=== PATIENT | male | born 1945 | race Caucasian/White ===

== ENCOUNTER 2022-11-14 06:29 | Day surgery (SDC) | payer OTHER ==
[2022-11-11 13:30] LABS: Protime INR 0.98
[2022-11-11 13:34] LABS: Absolute Lymphocytes (CBC) 1.4 K/uL (0.7-4.9); Hematocrit 41.4 % (39.6-49.0); Lymphocytes % 21.8 % (15.3-44.8); MCV 93.4 fL (80-100); MPV 7.8 fL (7.6-11.3); RBC Red Blood Cell Count 4.44 M/uL (4.33-5.43)
--- NOTE | 2022-11-11 13:52 | RAD REPORT ---
EXAM DESCRIPTION: [place] Single View11/11/2022 1:19 pm CLINICAL HISTORY: Preop for genitourinary surgery COMPARISON: 2013 FINDINGS: The lungs appear clear of acute infiltrate. The heart is normal size IMPRESSION: No acute abnormalities displayed
[2022-11-11 15:03] LABS: Specific Gravity 1.024 (1.005-1.030); Urine Bacteria <20 /HPF (<20); Urine Bilirubin NEGATIVE (Negative); Urine Blood Negative (Negative); Urine Clarity Clear (Clear); Urine Color Light-Yellow (Yellow); Urine Glucose NEGATIVE (Negative); Urine Mucus Slight /HPF (None Seen); Urine Protein TRACE (Negative); Urine RBC <5 /HPF (None Seen); Urine Urobilinogen Normal (Normal); Urine pH 5.5 (5.0-7.0)
--- NOTE | 2022-11-13 11:19 | EKG ---
Test Date: 2022-11-11 Test Time: 13:11:22 Extractor Machine Operator: CARLOS MEASUREMENT RESULTS: Intervals: Rate: 55 MN: 196 QRSD: 90 QT: 448 QTc: 428 [place]: P: 50 MN: 196 QRS: 57 T: 37 INTERPRETIVE STATEMENTS: Sinus bradycardia Otherwise normal ECG No previous ECG available for comparison Electronically Signed On 11-13-22 11:17:29 CDT by Hermelindo Zaidi
[2022-11-14] MEDS ORDERED: Ringers Lactate 1,000 ML IV ONE (07:06)
[2022-11-14] MEDS ORDERED: FENTANYL CITR 100 MCG/2 ML ONE (07:10)
[2022-11-14] MEDS ORDERED: LIDOCAINE 1% MPF 5 ML VIAL ONE (07:10)
[2022-11-14] MEDS ORDERED: propofoL 200 MG/20 ML VIAL IV ONE (07:10)
[2022-11-14] MEDS ORDERED: MIDAZOLAM HCL 2 MG/2 ML INJ ONE (07:10)
[2022-11-14] MEDS ORDERED: ONDANSETRON 4 MG/2 ML VIAL ONE (07:11)
[2022-11-14] MEDS ORDERED: ROCURONIUM 50 MG/5 ML VIAL IV ONE (07:11)
[2022-11-14] MEDS: CEFAZOLIN SODIUM 2 GM/VIAL ONE ×3 (07:47→07:52)
[2022-11-14] MEDS ORDERED: KETOROLAC 30 MG/ML INJ ONE (08:25)
[2022-11-14 08:36] VITALS: O2SAT 99
[2022-11-14] MEDS ORDERED: PHENAZOPYRIDINE 100MG TAB PO ONE ×2 (08:47→10:11)
[2022-11-14] MEDS ORDERED: HYDROCODONE/APAP 5/325 MG TAB PO PRN (08:47)
--- NOTE | 2022-11-14 09:05 | RAD REPORT ---
EXAM DESCRIPTION: RAD - Urethrocystogrphy Retrograde - 11/14/2022 8:39 am CLINICAL HISTORY: RT STENT PLACEMEMENT COMPARISON: None available. FINDINGS: Fluoroscopic images during a right ureteral stent placement procedure. No radiologist was available for the procedure, nor will any image interpretation he provided. Please refer to the proce dural report for additional details. Fluoroscopy time: 2:44 Minutes. IMPRESSION: Documentation of fluoroscopy utilization as above.
[2022-11-14 10:26] VITALS: BP 173/49
[2022-11-14 10:27] VITALS: TEMP 97.2
--- NOTE | 2022-11-14 12:46 | OP ---
Surgeon: PAULO FOSS Preoperative Diagnoses: 1.Right ureterolithiasis. 2.Right hydronephrosis. Postoperative Diagnoses: 1.Impacted right obstructive ureterolithiasis. 2.Right hydronephrosis. 3.Bulbar urethral stricture disease. Principal Procedures: 1.Cystoscopy. 2.Sequential urethral dilation over a wire. 3.Right retrograde pyelography. 4.Attempted but failed right upper tract access for ureteral stent placement. Indication For Procedure: Mr. Gunderson is a 77-year-old gentleman who presented to the [facility] recently with right flank pain and was found to have an obstructing 8 mm right ureteral calculu s. His pain had been present since April, and he had only recently been referred for evaluation. I counseled the patient extensively on the risk of impaction of the stone and the need for timely ames rgical intervention to relieve the obstruction given the potential for permanent kidney function jessica machado. As a result, he was scheduled today just days after the diagnosis was formed. Procedure Note In Detail: The patient was consented in the preoperative holding area before being tr ansferred to the operative suite, where general anesthesia was induced. He was given Ancef 2 g IV an timicrobial prophylaxis, and pneumo boots were provided for DVT prophylaxis. He was placed in the li thotomy position, padded and secured to the table appropriately. His genitalia were prepped with Hib iclens and draped in standard fashion. The case was begun using a 22-Zambian rigid cystoscope to rafaela erse the urethra. However, within the bulbar urethra, there was a superficial mucosal flap bulbar ur ethral stricture that prohibited passage of the cystoscope. As a result, I placed a Bentson wire thr ough the stricture which was approximately 15 Zambian in diameter, and had difficulty actually navigat ing the Bentson wire through the prostatic urethra. As a result, I used a 5-Zambian ureteral access c atheter and a Sensor wire and was subsequently able to navigate the wire through the stricture and th e prostatic urethra into his bladder. Over the Sensor wire, I then replaced the 5-Zambian ureteral ac cess catheter into his bladder with return of clear yellow urine, and then I switched the Sensor wire for a Bentson wire and then utilized sequential dilators starting at 18 Zambian to dilate his urethra and the stricture. I was able to successfully pass the 18-Zambian dilator, but the 20-Zambian dilator would not pass. I had to switch the Sensor wire then to a superstiff wire, at which point, I was ab le to then pass the 20-Zambian dilator and a 22-Zambian dilator, ultimately dilating to 24 Zambian. I t hen left the superstiff wire in place and backloaded the cystoscope over it and was able to navigate the scope past the point of stricture disease and through the prostatic urethra successfully into his bladder. At this point, his urine was bloody, and so I decompressed his bladder of fluid and urine and blood, and then irrigated it a bit in order just to be able to visualize the right ureteral orifi ce. A complete cystoscopic evaluation of his bladder was not performed because of the significant gr oss hematuria present. I was able to identify the right ureteral orifice amidst the blood, and utili zed a 5-Zambian ureteral access catheter along with a Sensor wire to gain access into the right ureter al orifice. With the tip of the 5-Zambian ureteral access catheter in the orifice, I then performed a retrograde pyelogram. Right retrograde pyelography: Using a 70:30 mixture of Omnipaque and saline, contrast was injected v ia the 5-Zambian ureteral access catheter and did propagate up the distal component of the ureter unti l it reached in a delayed fashion, a visible radiopaque calculus obstructing in the mid proximal uret er. The contrast abutted the base of the density, but initially would not pass beyond it. As a resu lt, I utilized a second 10 cc bolus of contrast and was able to get a wisp of contrast along the medi al border of the stone and into the proximal ureter. There was still delayed transit of the contrast entry into the renal pelvis, which was initially not visualized. However, with repeat spot fluorosc opic imagery, the contrast did enter the lower pole calyx only. As a result, I attempted to pass a S ensor wire via the 5-Zambian ureteral access catheter into his collecting system. Using the Sensor wire, I passed via the 5-Zambian ureteral access catheter, the wire up the distal int o the mid ureter where it encountered the base of the stone and would simply coil. Multiple attempts and manipulation were performed with the Sensor wire even bringing the 5-Zambian ureteral access cath eter up to the base of the stone and attempting to pass the wire around the stone were performed with out success. I even took a dilute bolus of contrast, 50:50 mixture, and with the 5-Zambian ureteral a ccess catheter just near the tip of the stone, and pressurized bolused the contrast beneath the stone in order to try to dislodge it a bit and then attempted to pass the Sensor wire around it, and I rem ained unsuccessful. So, I then switched to a hydrophilic Glidewire which I also attempted to pass ar ound the stone and after multiple attempts were completely unsuccessful at gaining access around the calculus. The wire would simply coil beneath it. I even switched to an angled Sensor wire in order to try to gain access beyond the stone with multiple efforts at manipulation of the angled tip, and y et remained unsuccessful at gaining access beyond the stone into the upper tract. So, at this point, after multiple attempts and failures, I aborted further efforts to gain access into his right collec ting system, and instead placed the superstiff wire back into his bladder after removing the 5-Zambian ureteral access catheter from his right ureter, and then I passed a 20-Zambian Councill tip catheter over the wire into his bladder after removing the cystoscope, leaving the wire in place. Once the Co uncill tip was successfully placed, I removed the superstiff wire and placed 10 cc of sterile water i n the balloon. The catheter was then connected to bag drainage, and the patient taken out of the lit hotomy position. He was then awakened from general anesthesia, transferred to a stretcher, and then transferred to the recovery room in good condition. Complications: None. Discharge Disposition: The patient will require prompt right percutaneous nephrostomy tube placement and subsequent management of his stone. Given the radiopaque nature of the stone, he may be a reaso nable candidate for ESWL and placement of a stent following successful treatment of the stone as oppo sed to an antegrade approach to the ureteroscopy and management of the stone. WR/MODL Voice ID: [id number] Report ID: [id number]
== END 2022-11-14 10:20 | disposition home or self-care (01) ==
LOC: OR 06:29
PROVIDERS: ATTEND Urology
PROC: 0T768DZ Dilation of Right Ureter with Intraluminal Device, Via Natural or Artificial Opening Endoscopic (ICD-10-PCS; principal; 2022-11-14 07:30)
DX: N13.2 Hydronephrosis with renal and ureteral calculous obstruction (principal); N35.912 Unspecified bulbous urethral stricture, male
CPT/HCPCS: 93005; 87088; 85025; 81001; 87086; 36415; 85610; 87077; 87186; 71045; 74450; 51610; 52332; J2704; J2001; J2250; J3010; J2405; J7120

== ENCOUNTER 2023-01-03 06:27 | Day surgery (SDC) | payer OTHER ==
[2022-12-19 15:51] LABS: Absolute Lymphocytes (CBC) 1.3 K/uL (0.7-4.9); Hematocrit 41.5 % (39.6-49.0); Lymphocytes % 23.2 % (15.3-44.8); MCV 92.5 fL (80-100); Platelets 247 thou/uL (152-406); RBC Red Blood Cell Count 4.49 M/uL (4.33-5.43)
[2022-12-19 16:04] LABS: Protime INR 0.97
[2022-12-19 16:09] LABS: Potassium 4.8 mEq/L (3.5-5.1)
[2023-01-03] MEDS ORDERED: Ringers Lactate 1,000 ML IV ONE (06:51)
[2023-01-03] MEDS ORDERED: propofoL 200 MG/20 ML VIAL IV ONE (07:10)
[2023-01-03] MEDS ORDERED: MIDAZOLAM HCL 2 MG/2 ML INJ ONE (07:11)
[2023-01-03] MEDS ORDERED: FENTANYL CITR 100 MCG/2 ML ONE (07:11)
[2023-01-03] MEDS ORDERED: ONDANSETRON 4 MG/2 ML VIAL ONE (07:13)
[2023-01-03] MEDS ORDERED: LIDOCAINE 1% MPF 5 ML VIAL ONE (07:19)
[2023-01-03] MEDS: CEFTRIAXONE 1000 MG/VIAL ONE ×3 (07:30→07:43)
[2023-01-03] MEDS ORDERED: ROCURONIUM 50 MG/5 ML VIAL IV ONE (07:58)
[2023-01-03] MEDS ORDERED: GLYCOPYRROLATE 0.2 MG/ML SYR ONE (08:28)
[2023-01-03] MEDS ORDERED: NEOSTIGMINE 1 MG/ML -10 ML VIAL ONE (08:29)
--- NOTE | 2023-01-03 08:33 | RAD REPORT ---
EXAM DESCRIPTION: RAD - Urethrocystogrphy Retrograde - 01/03/2023 8:27 am CLINICAL HISTORY: RT STENT EXCHANGE COMPARISON: Urethrocystogrphy Retrograde dated 11/14/2022; Abdomen Pelvis Wo Contrast dated FINDINGS/IMPRESSION: Fluoroscopic images submitted for a right ureteral stent placement and right ne phrostomy tube removal. Fluoro time: 1 minutes 13 seconds
[2023-01-03] MEDS ORDERED: NALOXONE 0.4 MG/ML VIAL ONE (08:46)
[2023-01-03] MEDS ORDERED: HYDROCODONE/APAP 5/325 MG TAB PO PRN (08:52)
[2023-01-03] MEDS ORDERED: PHENAZOPYRIDINE 100MG TAB PO ONE ×2 (08:52→09:43)
[2023-01-03 09:28] VITALS: BP 176/65; TEMP 97.5; O2SAT 98
[2023-01-03] MEDS ORDERED: HYDROCODONE/APAP 5/325 MG TAB ONE (09:44)
--- NOTE | 2023-01-03 16:27 | OP ---
Surgeon: PAULO FOSS Preoperative Diagnoses: 1.Impacted mid proximal ureterolithiasis on the right. 2.Status post right percutaneous nephrostomy tube. Postoperative Diagnoses: 1.Impacted mid proximal ureterolithiasis on the right. 2.Status post right percutaneous nephrostomy tube. 3.Mid proximal right ureteral stricture disease. Principal Procedures: 1.Cystoscopy with right retrograde pyelography. 2.Right ureteroscopy with laser lithotripsy. 3.Right ureteral stent placement. 4.Removal of right percutaneous nephrostomy tube. Indication For Procedure: Mr. Gunderson is a 77-year-old gentleman who presented to [facility] with pain that had been present for many months, since April of 2022, and he was subse quently found to have an obstructing 8 mm right mid ureteral calculus. He underwent attempted cystos copy and right ureteral stent placement, but no fluid would pass beyond the stone due to its densely impacted nature, and so I was unable to place the stent. As a result, a percutaneous nephrostomy tub e was placed, and he presents today for definitive management. Of note, he was started on Levaquin p reoperatively for a prior nephrostomy tube urine culture that was taken. Procedure In Detail: The patient was consented in the preoperative holding area before being transfe rred to the operative suite where general anesthesia was induced. He was given ceftriaxone 1 g IV an timicrobial prophylaxis, and pneumo boots were provided for DVT prophylaxis. He was placed in the li thotomy position, padded and secured to the table appropriately. His genitalia were prepped with Hib iclens and he was draped in standard fashion. The case was begun using a 22-Burkinan rigid cystoscope to traverse the urethra and into the bladder with ease. The bladder was decompressed of fluid and ur ine, and the right ureteral orifice was identified. It was cannulated using the tip of the Sensor wi re and a 5-Burkinan ureteral access catheter. A retrograde pyelogram was then performed. Right retrograde pyelography: Using a 70:30 mixture of Omnipaque and saline, contrast was injected v ia the lumen of the 5-Burkinan ureteral access catheter and did propagate up the distal into the mid ur eter where a radiodense calculus was identified. Contrast did propagate beyond the obstructing stone into the renal pelvis where the nephrostomy tube coil was localized. As a result, I then passed a S ensor wire via the 5-Burkinan ureteral access catheter and attempted to navigate it into the collecting system. Unfortunately, the wire would not navigate beyond the obstructing calculus, only coiling be neath it despite multiple attempts. As a result, I left the wire coiled beneath the stone and passed a dual-lumen catheter into the distal ureter and again injected contrast confirming the appropriate localization of the wire and the dual-lumen catheter. I then utilized a 0.35 mm Glidewire to pass vi a the second lumen of the dual-lumen catheter to attempt to navigate it beyond the stone and into the collecting system, but this also would not pass. As a result, I removed the dual-lumen catheter delma ving the Sensor wire in place, coiled beneath the stone, and I performed direct vision semi-rigid ure teroscopy. I traversed the urethra and into his bladder following alongside the wire into the ureter al orifice and up the distal ends of the mid ureter and eventually into the proximal ureter where the stone was identified. Using a 272 nm laser fiber and a power setting of 0.8 joules and 10 hertz ini tially, I began fragmenting the stone. I continued the fragmentation increasing the rate to 15 hertz in order to fragment the stone into dust, smaller than 1 mm particles. Once the stone had been rele ased out of its impacted localization within the mid proximal ureter, many of the smaller fragments d id go into the renal pelvis associated with the pressurized saline irrigation. However, because all of those fragments were smaller than 1 to 2 mm maximum, and because of evidence of some stricture trisha rowing in the mid proximal ureter, I did not elect to brenda those fragments into the renal pelvis for further lithotripsy. As a result, I then navigated the Sensor wire under direct vision via the stri cture narrowing and into the collecting system as observed fluoroscopically. I removed the semi-rigi d ureteroscope and then backloaded the cystoscope over the Sensor wire. Under direct vision, I then passed a 6-Burkinan x 26 cm double-J ureteral stent over the Sensor wire co iling it in the renal pelvis as observed fluoroscopically. An additional coil was cystoscopically se en within the bladder. I then decompressed his bladder of fluid and urine, and took the patient out of the lithotomy position. He was then awakened from general anesthesia, transferred to a stretcher, and then transferred to the recovery room in good condition. Complications: None. Discharge Disposition: Given the stricture disease noted within the mid proximal ureter, I did couns el the patient beforehand that I would likely recommend leaving the stent for at least 4 to 6 weeks t o prevent progression of the stricture disease to obstruction. As a result, I will recommend removal of the stent in 4 to 6 weeks' time and subsequently we will arrange a renal ultrasound in about 3 mo nths to ensure absence of hydronephrosis. ALLISON/AIMEL Voice ID: [id number] Report ID: [id number]
== END 2023-01-03 10:14 | disposition home or self-care (01) ==
LOC: OR 06:27
PROVIDERS: ATTEND Urology
PROC: 0T768DZ Dilation of Right Ureter with Intraluminal Device, Via Natural or Artificial Opening Endoscopic (ICD-10-PCS; 2023-01-03)
PROC: 0TF68ZZ Fragmentation in Right Ureter, Via Natural or Artificial Opening Endoscopic (ICD-10-PCS; principal; 2023-01-03 07:30)
DX: N13.2 Hydronephrosis with renal and ureteral calculous obstruction (principal); N13.5 Crossing vessel and stricture of ureter without hydronephrosis; Z93.6 Other artificial openings of urinary tract status
CPT/HCPCS: 87088; 85025; 87086; 80048; 36415; 85610; 74450; 51610; 52356; J2704; J2710; J2310; J2001; J2250; J3010; J2405; J7120; J0696

== ENCOUNTER → 2024-06-03 | Day surgery (SDC) | payer OTHER ==
[~2024-06-03] MED LIST: FENTANYL CITR 100 MCG/2 ML ONE; LIDOCAINE 1% MPF 5 ML VIAL ONE; MIDAZOLAM HCL 2 MG/2 ML INJ ONE; propofoL 200 MG/20 ML VIAL IV ONE
[2024-06-03 09:17] LABS: Specific Gravity 1.024 (1.005-1.030); Sqamous Epithelial None Seen /HPF (None Seen); Transitional Epithelial <5 /HPF (None Seen); Urine Bacteria None Seen /HPF (<20); Urine Bilirubin NEGATIVE (Negative); Urine Blood Negative (Negative); Urine Clarity Turbid (Clear); Urine Color Yellow (Yellow); Urine Culture Reflex Order NOT NEEDED; Urine Glucose NEGATIVE (Negative); Urine Ketones NEGATIVE (Negative); Urine Microscopic Reflex YN ORDER UMIC; Urine Mucus Slight /HPF (None Seen); Urine Nitrite NEGATIVE (Negative); Urine Protein NEGATIVE (Negative); Urine RBC <5 /HPF (None Seen); Urine Urobilinogen Normal (Normal); Urine WBC <5 /HPF (<5); Urine pH 6.5 (5.0-7.0)
[2024-06-03] MEDS: Ringers Lactate 1,000 ML IV ONE (09:35)
[2024-06-03 09:47] LABS: Absolute Eosinophils 0.1 K/uL (0-0.5); Absolute Lymphocytes (CBC) 0.9 K/uL (0.7-4.9); Absolute Monocytes 0.5 K/uL (0.1-1.3); Absolute Neutrophil 3.1 K/uL (1.8-8.0); Basophils % 0.7 % (0-1.3); Eosinophils % 1.5 % (0-4.4); Hematocrit 40.2 % (39.6-49.0); Hemoglobin 13.4 g/dL (13.6-17.9); Lymphocytes % 19.2 % (15.3-44.8); MCH 30.9 pg (27.0-35.0); MCHC 33.3 g/dL (32.0-36.0); MCV 92.9 fL (80-100); MPV 7.9 fL (7.6-11.3); Monocytes % 10.5 % (3.3-12.3); Neutrophils % 68.1 % (41.7-73.7); Nucleated Red Blood Cells % 0.1 % (0-0); Platelets 208 thou/uL (152-406); RBC Red Blood Cell Count 4.33 M/uL (4.33-5.43); Red Cell Distribution Width 13.7 % (12.1-15.2)
[2024-06-03 09:58] LABS: Anion Gap 6.3 mEq/L (5.0-15.0); Potassium 4.3 mEq/L (3.5-5.1)
[2024-06-03] MEDS: CIPROFLOXACIN HCL 500 MG TAB ONE (11:00)
[2024-06-03 11:07] LABS: PT Prothrombin Time 11.9 SECONDS (9.4-12.5); PTT, Activated Partial Thromb 32.8 SECONDS (24.3-36.9); Protime INR 1.13
--- NOTE | 2024-06-03 13:58 | P.OP ---
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 He underwent evaluation revealing an over 75 g prostate and was counseled on the opportunity to manage the obstruction via UroLift. 05/14/2024 PSA 1.3. Procedure note: The patient was consented in the preoperative holding area before being transferred to the operative suite where general anesthesia was induced. He was given ciprofloxacin 500 mg oral antimicrobial prophylaxis at least 1 to 2 hours prior to the procedure. Pneumoboots were provided for DVT prophylaxis. He was placed in the lithotomy position, padded and secured to the table appropriately. His genitalia was prepped with Hibiclens and he was draped in standard fashion. The case has begun using the 20 Uzbek UroLift sheath and a visual obturator along with normal saline irrigation to traverse the urethra and into the bladder with relative ease. Significant interdigitating lateral lobar hypertrophy was noted but no significant elevated median bar or intravesical projection of a median lobe. I surveyed the bladder in its entirety, which was moderate to severely trabeculated throughout, and posteriorly in the bladder, there was an approximately 6 x 3 mm calculus dependent. I utilized the sheath of the scope and navigated the calculus until it was situated lengthwise within the opening of the sheath, and I was able to deliver the calculus out using the 20 Uzbek UroLift sheath. I switched the visual obturator for the first UroLift delivery device and an implant. I targeted the first implant at the patient's bladder neck on the left at around the 3 o'clock position approximately 1.5 to 2 cm distal to the bladder neck opening. I angled the scope about 15 degrees into the tissue in that location and pulled the trigger once delivering the needle through the substance of the prostate. I then compressed the tissue completely intending the needle tip to be delivered outside of the capsule of the prostate. I then pulled the trigger a second time partially retracting the needle and deploying the capsular tab. A third pole of the trigger did tension the suture and completely retract the needle. I then advanced the scope back toward the midline and 2 to 3 mm t oward the bladder neck opening until the white line of the monofilament was centered in the delivery bay. At this point, with the tip of the delivery device still just within the bladder neck opening, I pulled the trigger a fourth time delivering the urethral end piece and tailoring the suture. This did beautifully lateralized the tissue in that location on the left bladder neck. I then advanced the scope back into the bladder and switched the delivery device for the next implant which was then targeted on the patient's right side at the bladder neck at around the 9 o'clock position again 1.5 to 2 cm distal to the bladder neck opening. I went through the steps described above and deployed the implant in that location beautifully lateralizing the tissue and opening the bladder neck. I then placed a third implant using similar steps this time at the level of the verumontanum on the left. Once this was done, I placed a fourth implant at the level of the verumontanum on the right. I then surveyed the channel created using a visual obturator, and there was residual tissue in the interim between the bladder neck and the apical implants. So I placed 1/5 implant within the mid zone between the apex and the base on the left nicely lateralized and the tissue there before 6 the implant was placed in the contralateral position on the right. Survey of the channel created did reveal the following: Slight residual apical kissing hypertrophy at the distalmost extent of the verumontanum, Slight intrusion of some inferior lateral tissue from the patient's left side between the mid gland implant and the base implant on the left. As a result, after studying it for a minute, I then elected to place 1/7 and final implant into the inferior lateral tissue on the patient's left side be tween the mid gland and the base. This did beautifully lateralized the tissue and create a continuous anterior channel visible from the verumontanum all the way into the bladder neck with again just slight approximation at the distalmost extent of the verumontanum. As a result, with 7 implants successfully placed, I studied the prostatic fossa for any signs of significant bleeding. When no sign ificant bleeding was noted, I elected to decompress his bladder of fluid and urine and remove the scope. I then took the patient out of the lithotomy position. He was awakened from general anesthesia, transferred to a stretcher, and then transferred to the recovery room in good condition. Complications: None Discharge disposition: He will be given a voiding trial in the recovery room prior to discharge today. If successful and able to void with ease, he will be discharged home without the catheter. Any difficulty voiding, and the catheter will be reinserted and will have to come out when the office is next open potentially on Monday afternoon or of this week given the weather associated. He will be discharged with a prescription for ciprofloxacin for the next 4-1/2 days for a total of 5 days of therapy. Subsequent follow-up should be established per routine in about 1 month's time. Findings and Operative Technique
[2024-06-03] MEDS: PHENAZOPYRIDINE 100MG TAB PO ONE (14:51)
[2024-06-03] MEDS: CODEINE 30MG/APAP 300MG TAB PO PRN (14:51)
[2024-06-03 15:28] VITALS: BP 150/65; TEMP 97.2; O2SAT 98
== END | disposition home or self-care (01) ==
LOC: OR 08:43
PROVIDERS: ATTEND Urology
PROC: 0T7D8DZ Dilation of Urethra with Intraluminal Device, Via Natural or Artificial Opening Endoscopic (ICD-10-PCS; principal; 2024-06-03 10:15)
DX: N40.1 Benign prostatic hyperplasia with lower urinary tract symptoms (principal); N13.8 Other obstructive and reflux uropathy; N21.0 Calculus in bladder
CPT/HCPCS: 52441; 52442 ×6; 87088; 85025; 81001; 87086; 80048; 36415; 85610; 88300; 85730; J2704; J2003; J2250; J3010; J7120

== ENCOUNTER 2024-07-12 16:27 | Emergency (ER) | payer OTHER ==
--- NOTE | 2024-07-12 17:27 | RAD REPORT ---
EXAM: Chest Single View HISTORY: 78 years Male FEVER COMPARISON: None. FINDINGS: LUNGS/PLEURA: The lungs are clear. No pleural effusions or pneumothorax. No pulmonary edema. Low lung volumes. CARDIAC/MEDIASTINUM: Magnified by portable technique, but probably within normal limits. UPPER ABDOMEN: No significant abnormality. BONES: No acute abnormality. LINES/TUBES/OTHER: N/A IMPRESSION: Low lung volumes but no definite acute process.
[2024-07-12 17:36] LABS: Absolute Eosinophils 0.1 K/uL (0-0.5); Absolute Lymphocytes (CBC) 0.6 K/uL (0.7-4.9); Absolute Monocytes 0.7 K/uL (0.1-1.3); Absolute Neutrophil 5.5 K/uL (1.8-8.0); Basophils % 0.3 % (0-1.3); Hematocrit 41.1 % (39.6-49.0); Hemoglobin 14.1 g/dL (13.6-17.9); Lymphocytes % 8.8 % (15.3-44.8); MCH 31.5 pg (27.0-35.0); MCHC 34.3 g/dL (32.0-36.0); MCV 91.8 fL (80-100); MPV 7.7 fL (7.6-11.3); Monocytes % 10.3 % (3.3-12.3); Neutrophils % 79.6 % (41.7-73.7); Nucleated Red Blood Cells % 0.1 % (0-0); Platelets 174 thou/uL (152-406); RBC Red Blood Cell Count 4.47 M/uL (4.33-5.43); Red Cell Distribution Width 13.7 % (12.1-15.2)
[2024-07-12 17:43] LABS: PT Prothrombin Time 12.9 SECONDS (10.0-13.0); PTT, Activated Partial Thromb 28.4 SECONDS (24.3-36.9); Protime INR 1.14
[2024-07-12 17:46] LABS: Specific Gravity 1.026 (1.005-1.030); Sqamous Epithelial None Seen /HPF (None Seen); Urine Bacteria None Seen /HPF (<20); Urine Bilirubin NEGATIVE (Negative); Urine Blood 1+ (Negative); Urine Clarity Clear (Clear); Urine Color Yellow (Yellow); Urine Crystals Unidentified Few /HPF (None Seen); Urine Culture Reflex Order NOT NEEDED; Urine Glucose NEGATIVE (Negative); Urine Ketones NEGATIVE (Negative); Urine Micro Reflex YN NO BILL MICROSCOPIC; Urine Mucus Slight /HPF (None Seen); Urine Nitrite NEGATIVE (Negative); Urine Protein 1+ (Negative); Urine Urobilinogen 1+ (Normal); Urine WBC <5 /HPF (<5); Urine WBC Clump Rare /HPF (None Seen); Urine Yeast (Budding) Trace /HPF (None Seen)
[2024-07-12 17:53] LABS: Albumin/Globulin Ratio 0.7 (1.1-1.8); Anion Gap 8.3 mEq/L (5.0-15.0); Bilirubin Total 0.7 mg/dL (0.2-1.0); Globulin 4.1 g/dL (2.3-3.5); Potassium 4.3 mEq/L (3.5-5.1); Protein, Total 7.1 g/dL (6.4-8.2); Troponin High Sensitivity 12.7 pg/mL (<58.9)
[2024-07-12] MEDS ORDERED: ACETAMINOPHEN 500 MG TAB ONE (18:01)
[2024-07-12 18:27] LABS: Influenza A Ag Negative; Influenza B Ag Negative; SARS-CoV-2 Antigen Rapid Res Negative (Negative)
[2024-07-12] MEDS ORDERED: NA CHLORIDE 0.9% 500 ML ONE (18:46)
--- NOTE | 2024-07-12 18:47 | RAD REPORT ---
EXAMINATION: CT ABDOMEN AND PELVIS WITH CONTRAST CLINICAL INDICATION: Male, 78 years old.lower abdomen pain, fever TECHNIQUE: CT abdomen and pelvis was performed, after the administration of IV contrast, as per [facility] protocol. Axial, sagittal and coronal reconstructions were obtained. One or more of the following dose reduction techniques were used: Automated exposure control, adjustment of the mA and/o r kV according to patient size, and/or iterative reconstruction. Unless otherwise specified, incidental findings do not require dedicated imaging follow-up. [id number]. COMPARISON: 01/16/2023 FINDINGS: LOWER CHEST: Consolidative airspace disease present in the right lower lobe.Small right pleural effus ion. UPPER GI: No significant abnormality. LIVER: Multiple low-density liver lesions that have benign imaging features. These are also unchanged GALLBLADDER/BILE DUCTS: Cholelithiasis without CT evidence of acute cholecystitis.? PANCREAS: Atrophy, but otherwise unremarkable. SPLEEN: Unremarkable. ADRENALS: Adrenal thickening without discrete mass. 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 ABDOMINAL AORTA AND OTHER VESSELS: Mild atherosclerotic changes. PERITONEUM: No abnormal free fluid. No free air. LYMPH NODES: No pathologic lymphadenopathy. ABDOMINAL WALL: Unremarkable SMALL BOWEL/COLON: Small bowel has normal course and caliber. No colonic wall thickening or pericolon ic inflammatory changes. URINARY BLADDER: Underdistended but grossly unremarkable. REPRODUCTIVE ORGANS: Moderate prostatomegaly. MUSCULOSKELETAL: Multilevel degenerative changes in the spine. No acute fracture. ADDITIONAL FINDINGS: None. IMPRESSION: No acute findings within the abdomen or pelvis. Mild right lower lobe consolidation with small pleural effusion likely reflecting pneumonia.
[2024-07-12] MEDS ORDERED: levoFLOXacin 750 MG TAB ONE (19:12)
--- NOTE | 2024-07-12 19:49 | EDPHYS ---
Physician Documentation [facility] Name: Jan Gunderson Age: 78 yrs Sex: Male : 1945 Arrival Date: 07/12/2024 Time: 16:27 Bed 13 Private MD: ED Physician Rosalino Farias HPI: 07/12 16:50 This 78 yrs old Male presents to ER via Ambulatory with complaints of Fever. cp 16:50 The patient reports fever, that was measured at 102 degrees Fahrenheit. cp 16:50 Onset: The symptoms/episode began/occurred this past Monday. cp 16:50 Associated signs and symptoms: Pertinent positives: cough, right lower abdomen pain. cp Severity of symptoms: in the emergency department the symptoms have improved mildly. 16:50 reports patient having Urolift surgery [address] Thomson. cp Historical: - Allergies: 16:39 No Known Allergies; cm10 - PMHx: 16:39 kidney problems; Hypertensive disorder; cm10 - PSHx: 16:39 kidney stent; knee sx; UroLift; cm10 - Immunization history:: Adult Immunizations up to date. - Infectious Disease History:: Denies. - Social history:: Smoking status: Patient denies any tobacco usage or history of. ROS: 16:55 Constitutional: Positive for fever, Negative for poor PO intake, cp 16:55 Eyes: Negative for injury, pain, redness, and discharge, cp 16:55 ENT: Negative for drainage from ear(s), ear pain, difficulty swallowing, difficulty handling secretions, 16:55 Cardiovascular: Negative for chest pain, palpitations, 16:55 Respiratory: Positive for cough, "sounds productive", 16:55 Abdomen/GI: Positive for abdominal pain, of the right lower quadrant, Negative for vomiting, diarrhea, constipation, 16:55 Neuro: Negative for altered mental status, dizziness, headache, 16:55 All other systems are negative, Exam: 17:00 Constitutional: The patient appears in no acute distress, alert, awake, cp non-diaphoretic, non-toxic, well developed, well nourished, 17:00 Head/Face: Normocephalic, atraumatic. cp 17:00 Eyes: Periorbital structures: appear normal, Conjunctiva: normal, no exudate, no injection, Sclera: no appreciated abnormality, Lids and lashes: appear normal, bilaterally, 17:00 ENT: External ear(s): are unremarkable, Nose: is normal, Mouth: Lips: moist, Oral mucosa: moist, Posterior pharynx: Airway: no evidence of obstruction, patent, 17:00 Neck: ROM/movement: is normal, is supple, without pain, no range of motions limitations, no meningismus, 17:00 Chest/axilla: Inspection: normal, 17:00 Cardiovascular: Rate: normal, Rhythm: regular, Edema: is not appreciated, JVD: is not appreciated, 17:00 Respiratory: the patient does not display signs of respiratory distress, Respirations: normal, no use of accessory muscles, no retractions, labored breathing, is not present, Breath sounds: bronchial sounds, that are mild, are heard diffusely, stridor, is not appreciated, wheezing: is not appreciated, 17:00 Abdomen/GI: Inspection: abdomen appears normal, Bowel sounds: active, all quadrants, Palpation: soft, in all quadrants, mild abdominal tenderness, in the right lower quadrant, rebound tenderness, is not appreciated, involuntary guarding, is not appreciated, 17:00 Back: CVA tenderness, is absent, 17:00 Neuro: Orientation: no acute changes, per family, Mentation: no acute changes, per family, Motor: moves all fours, no focal deficits, 18:00 ECG was reviewed by the Attending Physician. Vital Signs: 16:37 BP 152 / 73; Pulse 83; Resp 16; Temp 100.2(O); Pulse Ox 100% on R/A; Weight 86.18 kg; cm10 Height 6 ft. 0 in. ; Pain 5/10; 19:07 BP 171 / 68; Pulse 83; Resp 22; Temp 100.2(O); Pulse Ox 96% on R/A; iw 20:26 BP 140 / 59; Pulse 82; Resp 20; Temp 100(O); Pulse Ox 96% on R/A; dd2 16:37 Body Mass Index 25.77 (86.18 kg, 182.88 cm) cm10 16:37 Pain Scale: Adult cm10 MDM: 16:41 Medical Screening Exam initiated cp 17:00 Differential diagnosis: viral Infection, bacterial infection, pneumonia UTI, cp gastroenteritis. 19:48 Data reviewed: vital signs, nurses notes, lab test result(s), EKG, radiologic studies, cp CT scan, plain films, and as a result, I will discharge patient. 19:48 Consideration of Admission/Observation Escalation of care including cp admission/observation considered. I considered the following discharge prescriptions or medication management in the emergency department Medications were administered in the Emergency Department. See MAR. Independent interpretation of the following test(s) in the Emergency Department EKG: See my EKG interpretation above. Counseling: I had a detailed discussion with the patient and/or guardian regarding the historical points, exam findings, and any diagnostic results supporting the discharge/admit diagnosis, lab results, radiology results, to return to the emergency department if symptoms worsen or persist or if there are any questions or concerns that arise at home. Response to treatment: the patient's symptoms have mildly improved after treatment, and as a result, I will discharge patient. 07/12 16:41 Order name: Urinalysis W/Microscopic; Complete Time: 18:27 07/12 18:28 Interpretation: Normal except: UBLD 1+; UPROT 1+; UUROB 1+; URBC 5-10; BYST Trace. 07/12 16:56 Order name: Blood Culture Adult (2) 07/12 16:56 Order name: CBC with Diff; Complete Time: 18:27 07/12 18:29 Interpretation: Normal except: LORENZA% 79.6; LYM% 8.8; LYMA 0.6. 07/12 16:56 Order name: CMP; Complete Time: 18:27 07/12 18:28 Interpretation: Normal except: NA 133; GLUC 112; BUN 24; GFR 78; AST 40; ALB 3.0; GLOB cp 4.1; A/G 0.7. 07/12 16:56 Order name: Lactate w/ 2H reflex if indic.; Complete Time: 18:27 07/12 18:29 Interpretation: LAC 0.9; Reviewed. 07/12 16:56 Order name: Protime (+inr); Complete Time: 18:27 07/12 16:56 Order name: Ptt, Activated; Complete Time: 18:27 07/12 16:56 Order name: Troponin HS; Complete Time: 18:27 07/12 17:27 Order name: COVID-19 Ag + Flu A+B Ag; Complete Time: 18:27 07/12 18:29 Interpretation: Reviewed. 07/12 16:56 Order name: Chest Single View XRAY; Complete Time: 18:27 cp 07/12 17:32 Order name: CT Abd/Pelvis - IV Contrast Only; Complete Time: 18:51 cp 07/12 16:56 Order name: Accucheck; Complete Time: 18:00 cp 07/12 16:56 Order name: Cardiac monitoring; Complete Time: 18:00 cp 07/12 16:56 Order name: EKG - Nurse/Tech; Complete Time: 18:00 cp 07/12 16:56 Order name: IV Saline Lock - Large Bore; Complete Time: 18:00 07/12 16:56 Order name: Labs collected and sent; Complete Time: 18:00 07/12 16:56 Order name: O2 Per Protocol; Complete Time: 18:00 07/12 16:56 Order name: O2 Sat Monitoring; Complete Time: 18:00 07/12 16:56 Order name: Vital Signs; Complete Time: 18:00 cp EC:00 Rate is 77 beats/min. Rhythm is regular. VA interval is normal. QRS interval is normal. cp QT interval is normal. T waves are Inverted in leads III, aVR. Interpreted by me. Reviewed by me. Administered Medications: 18:10 Drug: Acetaminophen PO 1000 mg PO once Route: PO; iw 19:00 Follow up: Response: No adverse reaction iw 19:08 Drug: NS 0.9% IV 500 ml 500 ml IV at 1 bolus once; to be given as a bolus over 60 iw minutes Volume: 500 ml; Route: IV; Rate: 1 bolus; Site: right antecubital; 20:08 Follow up: IV Status: Completed infusion; IV Intake: 500ml dd2 19:14 Drug: LevOfloxacin PO 750 mg PO once Route: PO; dd2 19:44 Follow up: Response: No adverse reaction dd2 Disposition Summary: 07/12/24 19:49 Discharge Ordered Notes: Location: Home cp Problem: new cp Symptoms: have improved cp Condition: Stable cp Diagnosis - Pneumonia, unspecified organism cp Followup: cp - With: Private Physician - When: 2 - 3 days - Reason: Recheck today's complaints Discharge Instructions: - Discharge Summary Sheet cp - Community-Acquired Pneumonia, Adult cp Forms: - Medication Reconciliation Form cp - Antibiotic Education cp - Prescription Opioid Use cp - Patient Portal Instructions cp - Leadership Thank You Letter cp Prescriptions: - levofloxacin 500 mg Oral tablet - take 1 tablet ORAL route once daily for 7 days start evening of 07-13-2024; 6 cp tablet; Refills: 0, Product Selection Permitted Signatures: Dispatcher [employer] Mikala Sheridan, RN RN iw Jose Nielsen PA PA cp Martinez, Clarissa RN RN cm10 KESHAV KELLEY RN RN dd2 Corrections: (The following items were deleted from the chart) 16:57 16:57 BLOOD CULTURE*+BA.LAB.BRZ ordered. EDMS EDMS 16:57 16:57 CBC+H.LAB.BRZ ordered. EDMS EDMS 16:57 16:57 COMPREHENSIVE METABOLIC PANEL+C.LAB.BRZ ordered. EDMS EDMS 16:57 16:57 LACTATE+C.LAB.BRZ ordered. EDMS EDMS 16:57 16:57 PROTIME (+INR)+COAG.LAB.BRZ ordered. EDMS EDMS 16:57 16:57 PTT, ACTIVATED+COAG.LAB.BRZ ordered. EDMS EDMS 16:57 16:57 Troponin High Sensitivity+C.LAB.BRZ ordered. EDMS EDMS 16:57 16:57 Chest Single View+RAD.RAD.BRZ ordered. EDMS EDMS 18:58 17:32 Bladder Scanner ordered. cp iw
--- NOTE | 2024-07-12 19:49 | ER ---
Nurse's Notes [facility] Name: Jan Gunderson Age: 78 yrs Sex: Male : 1945 Arrival Date: 07/12/2024 Time: 16:27 Bed 13 Private MD: Diagnosis: Pneumonia, unspecified organism Presentation: 07/12 16:37 Chief complaint: Patient states: Fever onset Monday. TMAX 102.7f. Pt reports right cm10 lower abdominal pain. pt reports having a urolift [address] menjivar. Coronavirus screen: Client denies travel out of the [place] in the last 14 days. Ebola Screen: Patient denies travel to an Ebola-affected area in the 21 days before illness onset. Initial Sepsis Screen: Does the patient meet any 2 criteria? No. Patient's initial sepsis screen is negative. Does the patient have a suspected source of infection? No. Patient's initial sepsis screen is negative. Risk Assessment: Do you want to hurt yourself or someone else? Patient reports no desire to harm self or others. Onset of symptoms was July 08, 2024. 16:37 Method Of Arrival: Ambulatory cm10 16:37 Acuity: PARESH 3 cm10 Triage Assessment: 16:40 General: Appears in no apparent distress. comfortable, Behavior is calm, cooperative. cm10 Pain: Complains of pain in right femoral area Pain currently is 5 out of 10 on a pain scale. Neuro: No deficits noted. Level of Consciousness is awake, alert, obeys commands, Oriented to person, place, time, situation, Appropriate for age. Respiratory: No deficits noted. Airway is patent Respiratory effort is even, unlabored, Respiratory pattern is regular, symmetrical. Historical: - Allergies: 16:39 No Known Allergies; cm10 - PMHx: 16:39 kidney problems; Hypertensive disorder; cm10 - PSHx: 16:39 kidney stent; knee sx; UroLift; cm10 - Immunization history:: Adult Immunizations up to date. - Infectious Disease History:: Denies. - Social history:: Smoking status: Patient denies any tobacco usage or history of. Screenin:11 [facility] ED Fall Risk Assessment (Adult) History of falling in the last 3 months, iw including since admission No falls in past 3 months (0 pts) Confusion or Disorientation No (0 pts) Intoxicated or Sedated No (0 pts) Impaired Gait No (0 pts) Mobility Assist Device Used No (0 pt) Altered Elimination No (0 pt) Score/Fall Risk Level 0 - 2 = Low Risk Oriented to surroundings, Maintained a safe environment. Abuse screen: Denies threats or abuse. Nutritional screening: No deficits noted. Tuberculosis screening: No symptoms or risk factors identified. Assessment: 18:10 General: Appears in no apparent distress. Behavior is calm, cooperative. General: iw Reports fever for feeling ill for fatigue for. Pain: Complains of pain in suprapubic area, right lower quadrant and left lower quadrant. Neuro: Level of Consciousness is awake, alert, obeys commands, Oriented to person, place, time, situation, Moves all extremities. Full function. Cardiovascular: Patient's skin is warm and dry. Respiratory: Respiratory effort is even, unlabored, Respiratory pattern is regular, symmetrical. GI: Abdomen is non-distended. : Urine is clear, Reports. Derm: Skin is intact, is healthy with good turgor. Musculoskeletal: Range of motion: intact in all extremities. 19:07 Reassessment: Patient appears in no apparent distress at this time. Patient and/or iw family updated on plan of care and expected duration. Pain level reassessed. Patient is alert, oriented x 3, equal unlabored respirations, skin warm/dry/pink. Vital Signs: 16:37 BP 152 / 73; Pulse 83; Resp 16; Temp 100.2(O); Pulse Ox 100% on R/A; Weight 86.18 kg; cm10 Height 6 ft. 0 in. ; Pain 5/10; 19:07 BP 171 / 68; Pulse 83; Resp 22; Temp 100.2(O); Pulse Ox 96% on R/A; iw 20:26 BP 140 / 59; Pulse 82; Resp 20; Temp 100(O); Pulse Ox 96% on R/A; dd2 16:37 Body Mass Index 25.77 (86.18 kg, 182.88 cm) cm10 16:37 Pain Scale: Adult cm10 ED Course: 16:31 Patient arrived in ED. im 16:31 Jose Nielsen PA is PHCP. cp 16:31 Rosalino Farias MD is Attending Physician. cp 16:39 Triage completed. cm10 16:40 Arm band placed on right wrist. Patient placed in an exam room, on a stretcher. cm10 17:00 Mikala Grajeda, RN is Primary Nurse. iw 17:06 Chest Single View XRAY In Process Unspecified. EDMS 17:25 Inserted saline lock: 20 gauge in right upper arm, using aseptic technique. Flushed aa5 with 10 mL NS. 17:30 Initial lab(s) drawn, by me, sent to lab. First set of blood cultures drawn by me. aa5 17:32 Urine collected: sent to lab. aa5 17:45 Second set of blood cultures drawn by me. aa5 17:50 Inserted saline lock: 22 gauge in right hand, using aseptic technique. Flushed with 10 aa5 mL NS. 18:00 COVID-19 Ag + Flu A+B Ag Sent. iw 18:12 Patient has correct armband on for positive identification. Provided Education on: iw swabs and CT . 18:24 CT Abd/Pelvis - IV Contrast Only In Process Unspecified. EDMS 20:26 No provider procedures requiring assistance completed. IV discontinued, intact, dd2 bleeding controlled, No redness/swelling at site. Pressure dressing applied. Administered Medications: 18:10 Drug: Acetaminophen PO 1000 mg PO once Route: PO; iw 19:00 Follow up: Response: No adverse reaction iw 19:08 Drug: NS 0.9% IV 500 ml 500 ml IV at 1 bolus once; to be given as a bolus over 60 iw minutes Volume: 500 ml; Route: IV; Rate: 1 bolus; Site: right antecubital; 20:08 Follow up: IV Status: Completed infusion; IV Intake: 500ml dd2 19:14 Drug: LevOfloxacin PO 750 mg PO once Route: PO; dd2 19:44 Follow up: Response: No adverse reaction dd2 Medication: 18:11 VIS not applicable for this client. iw Intake: 20:08 IV: 500ml; Total: 500ml. dd2 Outcome: 19:49 Discharge ordered by . cp 20:26 Discharged to home ambulatory, dd2 20:26 Condition: stable 20:26 Discharge instructions given to patient, family, Instructed on discharge instructions, follow up and referral plans. medication usage, Demonstrated understanding of instructions, follow-up care, medications, 20:28 Patient left the ED. dd2 Signatures: Dispatcher [employer] EDPA Mikala Grajeda, RN RN iw Laurie Harris, RN RN aa5 Jose Nielsen PA PA cp Mendoza, Itzel im Martinez, Clarissa, RN RN cm10 KESHAV KELLEY, RN RN dd2
[2024-07-12 20:51] VITALS: O2SAT 96
[2024-07-12 20:53] VITALS: BP 140/59; TEMP 100
--- NOTE | 2024-07-15 12:10 | EKG ---
Test Date: 2024-07-12 Test Time: 17:54:37 Laydown Machine Operator: IRW MEASUREMENT RESULTS: Intervals: Rate: 77 LA: 174 QRSD: 80 QT: 352 QTc: 398 [place]: P: 48 LA: 174 QRS: -15 T: -2 INTERPRETIVE STATEMENTS: Normal sinus rhythm Possible Left atrial enlargement Cannot rule out Anterior infarct, age undetermined Abnormal ECG Compared to ECG 05/27/2024 11:24:01 Myocardial infarct finding now present Electronically Signed On 07-15-24 12:05:26 [employer] by Marino Paez
== END 2024-07-12 20:28 | disposition home or self-care (01) ==
LOC: ER 16:27
DX: J18.9 Pneumonia, unspecified organism (principal); R10.31 Right lower quadrant pain; Z98.890 Other specified postprocedural states; Z11.52 Encounter for screening for COVID-19
CPT/HCPCS: 87040 ×2; 85025; 81001; 36415; 85610; 83605; 85730; 84484; 80053; 74177; 71045; 96360; 99284; 87428; Q9967; J7040; 93005